=== PATIENT | female | born 1945 | race Caucasian/White ===

== ENCOUNTER → 2017-08-15 | Outpatient (CLI) | payer MEDICARE, BC ==
[~2017-08-15] MED LIST: ACCUPRIL40 MG PO; ACCUPRIL40MGTAB; ALLEGRA180 MG PO; APAP AND CODEI120 ML PO; APRESOLINE 25MG25 MG PO; ASPI325T6; ASPI325T6 PO; ASPIRIN 81M81 MG/TA2 PO; AVAPRO300 MG PO; BENADRYL25 M2; BENADRYL50 MG PO; CARDI-OMEGA1000 MG PO; CELEXA 20MG20 MG/TAB PO; CITALOPRAM HYDR20 MG PO; CITALOPRAM20 MG PO; COLACE 100100 MG/CAP PO; COZAAR 50MG50 MG/TAB PEG; COZAAR 50MG50 MG/TAB PO; DESYREL 50MG50 MG PO; Estradiol; FAMOTIDINE20 MG PO; FENTANYL; FERROUS SU325 MG/TAB PO; FLONASE NASAL S16 GM NS; FLONASEALLERGY NS; FLUTICASON0.05 MG/Ac NS; FOLIC ACID 40400 MCG PO; GABAPENTIN100 M1 PO; GEMCOR600 MG PO; GLUCOPHAGE XR500 M1 PO; GLUCOPHAGE500 MG/TAB PO; GLUCOTROL10 MG PO; LANTUS100 U/ML SQ; LASIX 40MG TABL40 MG PO; LIDODERM PATCH TP; LODINE400 MG PO; LOPRESSOR 225 MG/TAB PO; LYRICA 75MG CAP75 MG PO; MILK OF MA400 MG/52 PO; MULTIPLE VITAMI1 CAP PO; MULTIPLE VITAMI1 TA5 PO; NATURAL E400 IU PO; NORCO 325 MG-7.1 TAB PO; NORVASC 5MG5 MG/TAB PO; OSTEO-BI-FLEX 21 TAB PO; PEPCID 20MG TAB20 MG PO; PRAVACHOL 20MG20 MG PO; PRILOSEC 20MG20 MG PO; ROXICODONE 55 MG/TAB; ROXICODONE 55 MG/TAB PO; SENOKOT8.6 MG PO; SSKI1 GM/ML PO; SYNTHROID 0.10.15 MG PO; SYNTHROID0.2 MG/TAB PO; TRAMADOL50 MG PO; TRAZODO50 MG PO; TYLENOL 500MG500 MG PO; ULTRAM 50MG TAB50 MG; ULTRAM 50MG TAB50 MG PO; ULTRAM50 MG PO; VESICARE 5MG5 MG PO; VITAMIN C PURE500 MG PO; ZYRTEC 10MG10 MG PO
== END ==
LOC: MC.RAD 10:34
DX: Z12.31 Encounter for screening mammogram for malignant neoplasm of breast (principal)

== ENCOUNTER → 2018-06-20 | Outpatient (CLI) | payer MEDICARE, BC | LOC: ZCOL.LAB 16:34 | DX: J32.4 Chronic pansinusitis (principal) ==

== ENCOUNTER → 2018-07-10 | Outpatient (CLI) | payer MEDICARE, BC | LOC: ZLAB.ENT 15:18 | DX: J32.0 Chronic maxillary sinusitis (principal) ==

== ENCOUNTER → 2018-12-18 | Outpatient (CLI) | payer MEDICARE, BC | LOC: MC.RAD 11-06 10:00 | DX: Z12.31 Encounter for screening mammogram for malignant neoplasm of breast (principal) ==

== ENCOUNTER → 2020-09-23 | Outpatient (CLI) | payer MEDICARE, BC | LOC: MC.RAD 12:57 | DX: Z12.31 Encounter for screening mammogram for malignant neoplasm of breast (principal) ==

== ENCOUNTER 2020-12-23 09:31 | Outpatient (CLI) | payer MEDICARE, BC ==
--- NOTE | 2020-12-20 08:45 | NUR ---
LMOM WITH INSTRUCTIONS AND CALL BACK NUMBER
[2020-12-23] VITALS (10 sets, daily range): BP systolic 141–197; BP diastolic 63–79; PULSE 53–67
--- NOTE | 2020-12-23 14:35 | NUR ---
Pt assisted out by wheelchair to son's car. Personal belongings sent with pt. She expressed understanding of DC instructions. Denies complaints or pain at time of discharge. Has tolerated sips of water without issue.
== END 2020-12-23 14:35 | disposition home or self-care (01) ==
LOC: COL.RAD 09:31
DX: M47.816 Spondylosis without myelopathy or radiculopathy, lumbar region (principal); M48.061 Spinal stenosis, lumbar region without neurogenic claudication; Z98.890 Other specified postprocedural states
CPT/HCPCS: Q9965

== ENCOUNTER → 2021-01-05 | Outpatient (CLI) | payer MEDICARE, BC ==
[~2021-01-05] MED LIST changes: +ALDACTONE 25MG25 M1 PO; +ASPIRIN E.C. 8181 MG PO; +FERROUSAL325 MG PO; +LASIX 20MG TABL20 MG PO; +LEVEMIR FLEX100 U/ML SQ; +NORVASC 10MG10 MG PO; +PRAVACHOL80 MG PO
== END ==
LOC: MHCPAIN 14:42
DX: M47.817 Spondylosis without myelopathy or radiculopathy, lumbosacral region (principal); M53.3 Sacrococcygeal disorders, not elsewhere classified; M96.1 Postlaminectomy syndrome, not elsewhere classified; M54.5 Low back pain; G89.29 Other chronic pain
CPT/HCPCS: G0463

== ENCOUNTER → 2021-02-07 | Outpatient (CLI) | payer MEDICARE, BC | LOC: MHCPAIN 11:19 | DX: M47.817 Spondylosis without myelopathy or radiculopathy, lumbosacral region (principal); M54.16 Radiculopathy, lumbar region; M96.1 Postlaminectomy syndrome, not elsewhere classified; G89.29 Other chronic pain | CPT/HCPCS: G0463; J1100; Q9967 ==

== ENCOUNTER → 2021-02-22 | Outpatient (CLI) | payer MEDICARE, BC | LOC: MHCPAIN 12:17 | DX: M47.816 Spondylosis without myelopathy or radiculopathy, lumbar region (principal); M96.1 Postlaminectomy syndrome, not elsewhere classified; M53.3 Sacrococcygeal disorders, not elsewhere classified; G89.29 Other chronic pain | CPT/HCPCS: G0463 ==

== ENCOUNTER → 2021-06-02 | Outpatient (CLI) | payer MEDICARE, BC | LOC: MHCPAIN 13:14 | DX: M47.818 Spondylosis without myelopathy or radiculopathy, sacral and sacrococcygeal region (principal); M53.3 Sacrococcygeal disorders, not elsewhere classified; M96.1 Postlaminectomy syndrome, not elsewhere classified; M54.5 Low back pain | CPT/HCPCS: G0260; G0463; J1040; Q9967 ==

== ENCOUNTER → 2021-06-14 | Outpatient (CLI) | payer MEDICARE, BC | LOC: MHCPAIN 12:36 | DX: M47.817 Spondylosis without myelopathy or radiculopathy, lumbosacral region (principal); M54.5 Low back pain; M53.3 Sacrococcygeal disorders, not elsewhere classified; M79.18 Myalgia, other site; M96.1 Postlaminectomy syndrome, not elsewhere classified | CPT/HCPCS: G0463 ==

== ENCOUNTER 2021-07-26 09:01 | Outpatient (CLI) | payer MEDICARE, BC ==
[2007-12-07 02:50] VITALS: BP 136/59
[~2021-07-26] VITALS: Ht 172.7 cm; Wt 107.3 kg
[2021-07-26] VITALS (8 sets, daily range): BP systolic 168–194; BP diastolic 59–83; PULSE 52–59; TEMP 98.4
--- NOTE | 2021-07-26 12:30 | NUR ---
Dr. Rome gave verbal order to DC pt home following myelogram. Pt expressed understanding of DC instructions. She is able to ambulate to restroom with steady gait using cane. She was assisted out to son's truck by wheelchair with belongings.
== END 2021-07-26 12:30 | disposition home or self-care (01) ==
LOC: COL.RAD 09:01
DX: M47.812 Spondylosis without myelopathy or radiculopathy, cervical region (principal); M48.02 Spinal stenosis, cervical region
CPT/HCPCS: Q9967

== ENCOUNTER → 2021-09-27 | Outpatient (CLI) | payer MEDICARE, BC | LOC: MHCPAIN 12:50 | DX: M47.812 Spondylosis without myelopathy or radiculopathy, cervical region (principal); M54.12 Radiculopathy, cervical region; G89.29 Other chronic pain | CPT/HCPCS: G0463 ==

== ENCOUNTER → 2021-10-20 | Outpatient (CLI) | payer MEDICARE, BC | LOC: MHCPAIN 09:13 | DX: M47.812 Spondylosis without myelopathy or radiculopathy, cervical region (principal); M54.12 Radiculopathy, cervical region | CPT/HCPCS: J1100; Q9967 ==

== ENCOUNTER → 2021-11-02 | Outpatient (CLI) | payer MEDICARE, BC | LOC: MHCPAIN 09:32 | DX: M47.812 Spondylosis without myelopathy or radiculopathy, cervical region (principal); M54.12 Radiculopathy, cervical region; G89.29 Other chronic pain | CPT/HCPCS: G0463 ==

== ENCOUNTER → 2021-12-22 | Outpatient (CLI) | payer MEDICARE, BC | LOC: MHCPAIN 12:08 | DX: M47.812 Spondylosis without myelopathy or radiculopathy, cervical region (principal); M54.2 Cervicalgia; M54.12 Radiculopathy, cervical region | CPT/HCPCS: G0463; J1100; Q9967 ==

== ENCOUNTER → 2022-01-17 | Outpatient (CLI) | payer MEDICARE, BC | LOC: MHCPAIN 12:27 | DX: M47.812 Spondylosis without myelopathy or radiculopathy, cervical region (principal); M54.2 Cervicalgia; M54.50 Low back pain, unspecified | CPT/HCPCS: G0463 ==

== ENCOUNTER → 2022-02-20 | Outpatient (CLI) | payer MEDICARE, BC | LOC: MC.RAD 13:51 | DX: Z12.31 Encounter for screening mammogram for malignant neoplasm of breast (principal) ==

== ENCOUNTER → 2022-04-04 | Outpatient (CLI) | payer MEDICARE, BC | LOC: MHCPAIN 12:32 | DX: M47.817 Spondylosis without myelopathy or radiculopathy, lumbosacral region (principal); M53.3 Sacrococcygeal disorders, not elsewhere classified; M54.50 Low back pain, unspecified; M96.1 Postlaminectomy syndrome, not elsewhere classified | CPT/HCPCS: G0463 ==

== ENCOUNTER → 2022-04-20 | Outpatient (CLI) | payer MEDICARE, BC | LOC: MHCPAIN 13:30 | DX: M47.817 Spondylosis without myelopathy or radiculopathy, lumbosacral region (principal); M96.1 Postlaminectomy syndrome, not elsewhere classified; M53.3 Sacrococcygeal disorders, not elsewhere classified | CPT/HCPCS: G0260; J1040; Q9967 ==

== ENCOUNTER → 2022-05-10 | Outpatient (CLI) | payer MEDICARE, BC | LOC: MHCPAIN 12:10 | DX: M47.817 Spondylosis without myelopathy or radiculopathy, lumbosacral region (principal); M53.3 Sacrococcygeal disorders, not elsewhere classified; M54.50 Low back pain, unspecified; M96.1 Postlaminectomy syndrome, not elsewhere classified | CPT/HCPCS: G0463 ==

== ENCOUNTER 2023-02-04 09:37 | Inpatient (IN) | payer MEDICARE, BC ==
[~2023-02-04] VITALS: Ht 172.7 cm; Wt 104.0 kg
[2023-02-04 10:34] LABS: HEMATOCRIT 40.9 % (37.0-47.0); HEMOGLOBIN 14.8 g/dl (12.5-16.0); MEAN CELL VOLUME 91 fl (80.0-100.0); MEAN CORPUSCULAR HEMOGLOBIN 33 pg (27-31); MEAN CORPUSCULAR HGB CONC 36 g/dl (33.0-37.0); MEAN PLATELET VOLUME 9.9 fl (7.4-10.4); PLATELET COUNT 256 K/mm3 (130-400); RED BLOOD COUNT 4.51 M/mm3 (4.10-5.30); REDCELL DISTRIBUTION WIDTH-CV 13.6 % (11.5-14.5)
[2023-02-04 10:45] LABS: ALBUMIN 3.4 gm/dL (3.4-4.8); BILIRUBIN,TOTAL 0.7 mg/dL (0.2-1.2); CALCIUM 9.9 mg/dL (8.4-10.2); CREATININE, serum 2.06 mg/dL (0.57-1.11); POTASSIUM 4.9 mmol/L (3.5-4.5); TOTAL PROTEIN 7.2 gm/dL (6.2-8.1)
[2023-02-04 11:03] LABS: BAND 15 % (0-10); LYMPHOCYTE 5 % (20.0-51.0); METAMYELOCYTE 1 % (0-0); NEUTROPHILS 74 % (42.0-75.2); PLATELET ESTIMATE NORMAL (NORMAL)
[2023-02-04 11:31] LABS: MUCOUS Present (NOT PRESENT); SQUAMOUS EPITHELIAL None Seen /hpf (0-10); URINE BACTERIA Occasional /hpf (NONE SEEN)
[2023-02-04 11:32] LABS: URINE APPEARANCE Cloudy (CLEAR/HAZY); URINE BLOOD 2+ (NEGATIVE); URINE COLOR Yellow (YELLOW); URINE GLUCOSE Negative (NEGATIVE); URINE KETONE Negative (NEGATIVE); URINE NITRATE Negative (NEGATIVE); URINE PROTEIN(semi-quant) 3+ (NEGATIVE); URINE UROBILINOGEN 0.2 E.U/dL (0.2-1.0)
--- NOTE | 2023-02-04 14:04 | NUR ---
Patient arrived to the unit, alert and oriented x4, VSS, hypertension. Assessment intake done.
[2023-02-04 14:20] VITALS: BP 138/70; PULSE 74; TEMP 97.8
[2023-02-04] MEDS ORDERED: ZYLOPRIM 100MG100 MG PO (14:31)
[2023-02-04] MEDS ORDERED: HYGROTON 2525 MG/TAB PO (14:32)
[2023-02-04] MEDS ORDERED: FLEXERIL5 MG PO (14:34)
[2023-02-04] MEDS ORDERED: THEREMS-M TABL1 EACH PO (14:41)
[2023-02-04] MEDS ORDERED: BENICAR40 MG PO (14:42)
[2023-02-04] MEDS ORDERED: PREDNISONE10 MG PO (14:47)
[2023-02-04] MEDS ORDERED: SYNTHROID0.1 MG/TAB PO (14:51)
[2023-02-04 16:10] VITALS: BP 144/69; PULSE 99; TEMP 97.7
--- NOTE | 2023-02-04 18:13 | NUR ---
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
[2023-02-04 20:55] VITALS: BP 149/57; PULSE 80; TEMP 100.1
[2023-02-04 23:58] VITALS: BP 128/59; PULSE 63; TEMP 98.5
[2023-02-05] VITALS (14 sets, daily range): BP systolic 99–171; BP diastolic 48–101; PULSE 59–81; TEMP 96.9–98.6
--- NOTE | 2023-02-05 01:13 | NUR ---
ELIGIO FROM LAB CALLED AT 0109 WITH POSITIVE BLOOD CULTURE. GRAM NEGATIVE RODS--ECOLI. [facility] FALL NOTIFIED AT 0112. MISAEL BUTLER WHO IS ASSIGNED TO THIS PATIENT NOTIFED AT THIS TIME WELL.
[2023-02-05 06:38] LABS: BASO # 0.1 K/mm3 (0.0-0.2); BASO % 0.3 % (0.0-2.0); EOS % 0.1 % (0.0-4.0); GRAN # 16.6 K/mm3 (1.4-6.5); GRAN % 84.4 % (42.2-75.2); LYMPH # 1.6 K/mm3 (1.2-3.4); LYMPH % 7.9 % (20.0-51.0); MEAN CELL VOLUME 94 fl (80.0-100.0); MEAN CORPUSCULAR HGB CONC 34 g/dl (33.0-37.0); MEAN PLATELET VOLUME 9.8 fl (7.4-10.4); MONO % 5.1 % (1.7-9.3); PLATELET COUNT 165 K/mm3 (130-400); REDCELL DISTRIBUTION WIDTH-CV 13.9 % (11.5-14.5)
[2023-02-05 06:44] LABS: HEMATOCRIT 36.6 % (37.0-47.0); HEMOGLOBIN 12.4 g/dl (12.5-16.0); MEAN CORPUSCULAR HEMOGLOBIN 32 pg (27-31)
[2023-02-05 06:48] LABS: CALCIUM 8.6 mg/dL (8.4-10.2); CREATININE, serum 1.87 mg/dL (0.57-1.11)
[2023-02-05 07:30] LABS: BAND 14 % (0-10); LYMPHOCYTE 6 % (20.0-51.0); METAMYELOCYTE 2 % (0-0); NEUTROPHILS 76 % (42.0-75.2)
[2023-02-05 07:31] LABS: BURR CELLS 1+; PLATELET ESTIMATE NORMAL (NORMAL)
--- NOTE | 2023-02-05 09:39 | NUR ---
SHIFT ASSESSMENT COMPLETED AND MORNING MEDICATIONS ADMINISTERED PER ORDER. PATIENT IS ALERT AND ORIENTED X4. DENIES PAIN. LUNGS CTA, DIMINISHED TO RIGHT LOWER LOBE. ON CARDIZEM DRIP AT 5ML/HR, TOLERATING WELL. PER LEANNE ROMERO, PATIENT TO GET ADDITIONAL DOSE OF METOPROLOL THIS MORNING AND THEN RN TO D/C CARDIZEM GTT ONE HOUR POST METOPROLOL ADMINISTRATION. PATIENT DENIES NEEDS AT THIS TIME. CALL LIGHT WITHIN REACH.
--- NOTE | 2023-02-05 09:53 | NUR ---
SHIFT ASSESSMENT COMPLETED AND MORNING MEDICATIONS ADMINISTERED PER ORDER. PATIENT IS ALERT AND ORIENTED X4. C/O GENERALIZED PAIN /, TREATED WITH PRN APAP. SCHEDULED FOR LP TODAY AROUND 1100. DENIES NEEDS. CALL LIGHT WITHIN REACH.
[2023-02-05 11:00] LABS: COLLECTION METHOD CATHETER
--- NOTE | 2023-02-05 11:33 | NUR ---
PATIENT POSITIVE FOR E.COLI IN URINE AND BLOOD, PATIENT PLACED ON CONTACT PRECAUTIONS PER INFECTION CONTROL- DR. MORRIS UPDATED.
[2023-02-05 13:04] LABS: GLUCOSE,CSF 86 mg/dL (40-70)
[2023-02-05 13:10] LABS: CSF APPEARANCE CLEAR; CSF COLOR COLORLESS; CSF RBC 16 /mm3 (0-0)
[2023-02-05 13:18] LABS: TOTAL PROTEIN,CSF 28 mg/dL (15-45)
[2023-02-05 13:41] LABS: CSF MONONUCLEAR 75 % (70-100); CSF POLYMORPHONUCLEAR 25 % (0-6)
--- NOTE | 2023-02-05 13:55 | NUR ---
PATIENT RETURNED FROM LP AT APPROX 1245. POST OPS INITIATED. DENIES HEADACHE OR OTHER PAIN. INSTRUCTED TO REMAIN FLAT FOR 2 HOURS, PATIENT VERBALIZED UNDERSTANDING. DENIES FURTHER NEEDS, CALL LIGHT WITHIN REACH.
--- NOTE | 2023-02-05 15:00 | NUR ---
Patient scheduled telehealth visit with Dr. Jalloh, Infectious Disease. Pt consents to visit. Equipment set up, audio and video connections established. Visit conducted by . No technical concerns or issues.
--- NOTE | 2023-02-05 15:24 | NUR ---
ORESTES met with the patient to discuss discharge plan. The patient lives alone in [place]. She states that her grandson has been staying with her off and on until his new lease starts in February. She reports independence with ADLs and has a cane and walker. The patient's PCP is Dr. Samantha Ruiz and she receives her medications from [facility]. The patient does not have a DPOA-HC in EMR, but she states that she does has one completed and that she believes she designated her son, Jonh (ph#[phone]). Jonh lives 1/2 mile away from her. She provides that she is , but her has Alzheimer's and is in the alf, [facility] in [place]. She states that she has two children: Jonh and Shilpa. The patient plans to return home upon discharge. No additional needs at this time. *Discharge plan: home*
--- NOTE | 2023-02-05 15:51 | NUR ---
PATIENT HAS NOT BEEN ABLE TO VOID ALL DAY, BLADDER SCAN PERFORMED WHICH SHOWED 1126ML URINE IN THE BLADDER. DR. MORRIS UPDATED, NEW ORDER FOR [facility] RECEIVED.
--- NOTE | 2023-02-05 20:30 | NUR ---
Initial shift assessment done- Alert/oriented, VSS, IV fluids of NS at 75cc/hr, Lam with clear yellow urine at this time, tele on-SR, No requests at this time. Repositioned in bed-
[2023-02-06 04:08] VITALS: BP 154/88; PULSE 69; TEMP 97.9
--- NOTE | 2023-02-06 05:37 | NUR ---
Has not slept much tonight- numerous requests throughout the night- could not get comfortable, states her arthritis was acting up== did give Tylenol around 0100 but was not effective---called lucas DALEY and got pts home dose of Tramadol ordered,, give 100mg Tramadol around 0435. Repositioned numerous times- rearranged pillows etc
[2023-02-06 07:23] VITALS: BP 157/52; PULSE 66; TEMP 97.5
--- NOTE | 2023-02-06 09:58 | NUR ---
Initial visit; Patient thanked Aviation Electrical Technician for stopping in and offering God's blessings. Aviation Electrical Technician will follow up.
[2023-02-06 10:27] LABS: BASO # 0.1 K/mm3 (0.0-0.2); BASO % 0.3 % (0.0-2.0); EOS # 0.1 K/mm3 (0.0-0.7); EOS % 0.7 % (0.0-4.0); GRAN # 15.6 K/mm3 (1.4-6.5); HEMOGLOBIN 12.9 g/dl (12.5-16.0); LYMPH # 1.4 K/mm3 (1.2-3.4); LYMPH % 7.9 % (20.0-51.0); MEAN CELL VOLUME 91 fl (80.0-100.0); MEAN CORPUSCULAR HEMOGLOBIN 32 pg (27-31); MEAN CORPUSCULAR HGB CONC 35 g/dl (33.0-37.0); MEAN PLATELET VOLUME 9.7 fl (7.4-10.4); MONO # 0.8 K/mm3 (0.1-0.6); MONO % 4.2 % (1.7-9.3); PLATELET COUNT 201 K/mm3 (130-400); RED BLOOD COUNT 4.03 M/mm3 (4.10-5.30); REDCELL DISTRIBUTION WIDTH-CV 13.7 % (11.5-14.5)
[2023-02-06 10:28] LABS: HEMATOCRIT 36.5 % (37.0-47.0)
[2023-02-06 10:45] LABS: CALCIUM 9.1 mg/dL (8.4-10.2); CREATININE, serum 1.48 mg/dL (0.57-1.11); POTASSIUM 4.1 mmol/L (3.5-4.5)
[2023-02-06 11:19] VITALS: BP 154/56; PULSE 74; TEMP 98.1
--- NOTE | 2023-02-06 11:36 | NUR ---
Patient is sitting up on the chair, alert and oriented x 4, states she was able to sleep after the tramadol was provided at night. Assessment completed, meds provided. No other needs at this time. Call light within reach.
[2023-02-06 15:17] LABS: HSV 2 DNA PCR QUAL Not Detected (())
--- NOTE | 2023-02-06 15:20 | NUR ---
Telehealth visit conducted with Dr. Yung Jalloh, Infectious Disease. Patient consented to visit. Patient failiar with Dr. Jalloh from previous care. Telecommunication initiated without any difficulties during exam. All questions were answered by Dr. Jalloh
[2023-02-06 16:00] VITALS: BP 168/62; PULSE 65; TEMP 98.2
--- NOTE | 2023-02-06 17:54 | NUR ---
Patient states feeling ok right now, just ordered her dinner. Helped to transfer to the chair. Denies any chest pain. Report will be given to night RN.
[2023-02-06 19:08] VITALS: BP 188/59; PULSE 71; TEMP 98.3
[2023-02-06 23:42] VITALS: BP 192/99; BP 196/59; PULSE 61; TEMP 97.7
--- NOTE | 2023-02-07 02:03 | NUR ---
AT 1849 THIS RN RECEIVED CRITICAL TROPONIN LEVEL FOR PATIENT. Chaz JAMESON NOTIFED SEE NEW ORDERS. PTS BLOOD PRESSURE HIGH AT 2000 VITAL SIGNS MEDICATIONS ORDERED FOR THAT AT 0000 VITAL SIGNS PTS BLOOD PRESSURE 196/59 RN NOTIFIED Chaz JAMESON SEE NEW ORDERS. RN ALSO NOTIFIED OF PTS STILL ELEVATED TROPS BUT TRENDING DOWN
[2023-02-07 03:02] VITALS: BP 150/47; PULSE 55; TEMP 98.1
[2023-02-07 06:52] LABS: BASO % 0.2 % (0.0-2.0); EOS # 0.2 K/mm3 (0.0-0.7); EOS % 1.3 % (0.0-4.0); GRAN # 10.2 K/mm3 (1.4-6.5); GRAN % 79.7 % (42.2-75.2); HEMOGLOBIN 11.9 g/dl (12.5-16.0); LYMPH # 1.7 K/mm3 (1.2-3.4); LYMPH % 13.2 % (20.0-51.0); MEAN CELL VOLUME 93 fl (80.0-100.0); MEAN CORPUSCULAR HEMOGLOBIN 32 pg (27-31); MEAN CORPUSCULAR HGB CONC 34 g/dl (33.0-37.0); MEAN PLATELET VOLUME 10.2 fl (7.4-10.4); MONO # 0.6 K/mm3 (0.1-0.6); PLATELET COUNT 172 K/mm3 (130-400); RED BLOOD COUNT 3.78 M/mm3 (4.10-5.30); REDCELL DISTRIBUTION WIDTH-CV 13.5 % (11.5-14.5)
[2023-02-07 06:59] LABS: CREATININE, serum 1.4 mg/dL (0.57-1.11); HEMATOCRIT 35.1 % (37.0-47.0); POTASSIUM 4.7 mmol/L (3.5-4.5)
[2023-02-07 07:15] VITALS: BP 157/58; PULSE 67; TEMP 97.8
[2023-02-07 11:16] VITALS: BP 156/50; PULSE 57; TEMP 98.1
[2023-02-07 16:00] VITALS: BP 156/76; PULSE 62; TEMP 98.1
--- NOTE | 2023-02-07 17:45 | NUR ---
PT IS ALERT AND ORIENTED. SITTING IN CHAIR. NO COMPLAINTS AT THIS TIME. CALL [facility] IN REACH.
[2023-02-07 19:29] VITALS: BP 181/61; PULSE 59; TEMP 97.3
[2023-02-07 23:36] VITALS: BP 162/49; PULSE 54; TEMP 98.4
[2023-02-08] VITALS (8 sets, daily range): BP systolic 147–192; BP diastolic 52–79; PULSE 51–65; TEMP 97.4–98.1
--- NOTE | 2023-02-08 04:00 | NUR ---
PT HAD AN UNEVENTFUL NIGHT. PT STILL COMPLAINING THAT SHE IS STILL NOT TAKING HER NORMAL HOME MEDICATIONS, RN EDUCATED THE PATIENT THAT THE DOCTORS COULD BE HOLDING THE MEDICATIONS DUE TO SOME BLOOD PRESSURE ISSUES SHES BEEN HAVING ALONG WITH HER HEART RATE DROPPINGINTO THE 40S. PT SEEMED TO UNDERSTANDING THIS EDUCATION. PT STILL COMPLAINING OF ITCHING. NO RASH SEEN ON PATIENTS BODY. AT THE TIME OF THIS NOTE 0400 VITALS NOT TAKEN PATIENT WAS SLEEPING AND THE PATIENT REQUESTED TO SLEEP SHE HAD NOT BEEN SLEEPING THE LAST TWO NIGHTS WHEN THIS NURSE TOOK CARE OF HER. PT GIVEN TYLENOL X1 AND ULTRAM X1 COMPLAINING OF BACK PAIN BOTH TIMES. PT STATED SHE IS READY TO GO HOME. PRN IV HYDRALAZINE GIVEN X1. AT THIS TIME PT APPEARS TO BE SLEEPING COMFORTABLY.
[2023-02-08 06:26] LABS: BASO # 0.1 K/mm3 (0.0-0.2); BASO % 0.5 % (0.0-2.0); EOS # 0.2 K/mm3 (0.0-0.7); EOS % 2.2 % (0.0-4.0); GRAN # 7.1 K/mm3 (1.4-6.5); GRAN % 70.4 % (42.2-75.2); HEMATOCRIT 35.5 % (37.0-47.0); HEMOGLOBIN 12.6 g/dl (12.5-16.0); LYMPH # 1.9 K/mm3 (1.2-3.4); LYMPH % 19.1 % (20.0-51.0); MEAN CELL VOLUME 90 fl (80.0-100.0); MEAN CORPUSCULAR HEMOGLOBIN 32 pg (27-31); MEAN CORPUSCULAR HGB CONC 36 g/dl (33.0-37.0); MEAN PLATELET VOLUME 10.1 fl (7.4-10.4); MONO # 0.7 K/mm3 (0.1-0.6); MONO % 7.1 % (1.7-9.3); PLATELET COUNT 217 K/mm3 (130-400); RED BLOOD COUNT 3.94 M/mm3 (4.10-5.30); REDCELL DISTRIBUTION WIDTH-CV 13.6 % (11.5-14.5)
[2023-02-08 06:38] LABS: CALCIUM 9.4 mg/dL (8.4-10.2); CREATININE, serum 1.29 mg/dL (0.57-1.11); POTASSIUM 4.5 mmol/L (3.5-4.5)
--- NOTE | 2023-02-08 07:49 | NUR ---
Patient's PFT will be on Sunday02/09/23 at 0800. RT will come get patient at 0730. Patient is not to have any caffine 8 hours prior. Thank you
--- NOTE | 2023-02-08 08:05 | NUR ---
0645 recieved shift re[prt from primary nurse Mehul. Completed daily shift assessment patient is A&O x 4. Patient states no needs at this time. Call light within reach.
[2023-02-08] MEDS ORDERED: TOPROL XL 25MG25 MG PO (08:38)
--- NOTE | 2023-02-08 13:10 | NUR ---
Telehealth visit conducted with Dr. Yung Jalloh, Infectious Disease. Patient consented to visit. Emergency Medicine Medical Director initiated without any difficulties during exam. All questions were answered by Dr. Jalloh.
--- NOTE | 2023-02-08 23:43 | NUR ---
PATIENT ASSESSED AND GIVEN NIGHTLY MEDICATIONS. SHE IS AOX4 AND PLEASANT TO SPEAK WITH. CALVIN IN PLACE FOR RETENTION. BG WAS 161. PFT PLANNED FOR 02/09, NO CAFFEINE AFTER MIDNIGHT. REFUSING YELLOW GOWN PER PCT, WILL EDUCATE ABOUT FALL RISK PRECAUTIONS. BED ALARM ACTIVE. NO COMPLAINTS OF CHEST PAIN, SB/SR ON TELE. CALL LIGHT IN REACH. BED IN LOWEST POSITION. HOME CPAP ON PATIENT.
--- NOTE | 2023-02-09 01:38 | NUR ---
PRN IV HYDRALAZINE JUST GIVEN FOR HYPERTENSION. HER LEFT HAND IV WAS LEAKING AND NO LONGER WORKING, SO A 22G WAS PLACED IN HER RIGHT AC. WILL OBTAIN A BP ON HER AFTER THE MEDICATION BEGINS WORKING.
[2023-02-09 02:07] VITALS: BP 172/53
[2023-02-09 03:33] VITALS: BP 149/51; PULSE 62; TEMP 98.9
--- NOTE | 2023-02-09 04:09 | NUR ---
PATIENT HAS BEEN VERY ANXIOUS TONIGHT ABOUT HER BLOOD PRESSURE BEING HIGH, FEELING CLAUSTROPHOBIC IN HER ROOM, THAT HER STOMACH IS UPSET, AND SHE'S ANXIOUS TO GET OUT OF HERE. SHE WAS REASSURED AND IS RESTING COMFORTABLY CURRENTLY.
[2023-02-09 06:04] LABS: BASO # 0.1 K/mm3 (0.0-0.2); BASO % 0.4 % (0.0-2.0); EOS # 0.3 K/mm3 (0.0-0.7); EOS % 2.1 % (0.0-4.0); GRAN # 8.6 K/mm3 (1.4-6.5); HEMOGLOBIN 12.9 g/dl (12.5-16.0); LYMPH # 2.2 K/mm3 (1.2-3.4); LYMPH % 18.2 % (20.0-51.0); MEAN CELL VOLUME 93 fl (80.0-100.0); MEAN CORPUSCULAR HEMOGLOBIN 31 pg (27-31); MEAN CORPUSCULAR HGB CONC 34 g/dl (33.0-37.0); MEAN PLATELET VOLUME 9.6 fl (7.4-10.4); MONO # 0.9 K/mm3 (0.1-0.6); MONO % 7.3 % (1.7-9.3); PLATELET COUNT 280 K/mm3 (130-400); RED BLOOD COUNT 4.11 M/mm3 (4.10-5.30); REDCELL DISTRIBUTION WIDTH-CV 13.6 % (11.5-14.5)
[2023-02-09 06:19] LABS: CALCIUM 9.2 mg/dL (8.4-10.2); CREATININE, serum 1.49 mg/dL (0.57-1.11); POTASSIUM 4.4 mmol/L (3.5-4.5)
--- NOTE | 2023-02-09 06:45 | NUR ---
Received shift report from primary nurse, MISAEL Carver. Notified primary nurse of blood pressure (review flowsheet).
[2023-02-09 07:15] VITALS: BP 184/58; PULSE 62; TEMP 98.4
[2023-02-09 09:00] VITALS: BP 163/52; PULSE 65
[2023-02-09 11:19] VITALS: BP 147/54; PULSE 68; TEMP 98.1
[2023-02-09] MEDS ORDERED: CEFTIN500 MG PO (11:28)
[2023-02-09] MEDS ORDERED: ELIQUIS 5MG PO (11:29)
[2023-02-09] MEDS ORDERED: CORDARONE200 MG/TAB PO (11:32)
[2023-02-09] MEDS ORDERED: LIPITOR20 MG PO (11:32)
[2023-02-09] MEDS ORDERED: APRESOLINE 25MG25 MG PO (11:33)
--- NOTE | 2023-02-09 12:55 | NUR ---
The patient may be able to discharge today, 02/09. SW met with the patient to review discharge plan. The patient had no concerns for SW and plans to return home. ORESTES presented and read the IM form outloud to the patient. The patient verbalized understanding and agreement to discharge. She signed the form and ORESTES provided her with a copy. No additional needs at this time.
--- NOTE | 2023-02-09 17:17 | NUR ---
PT DISCHARGED HOME WITH SON. IV REMOVED, CATHETER INTACT, BANDAGE PLACED
== END 2023-02-09 17:10 | disposition home or self-care (01) | DRG 853 ==
LOC: COL.ER 09:37 → MEDICAL 11:32
PROVIDERS: Family Medicine; Physician Assistant; ADMIT Student in an Organized Health Care Education/Training Program
PROC: 009U3ZX Drainage of Spinal Canal, Percutaneous Approach, Diagnostic (ICD-10-PCS; 2023-02-05)
PROC: B01B1ZZ Fluoroscopy of Spinal Cord using Low Osmolar Contrast (ICD-10-PCS; 2023-02-05)
PROC: 5A09457 Assistance with Respiratory Ventilation, 24-96 Consecutive Hours, Continuous Positive Airway Pressure (ICD-10-PCS; 2023-02-07)
PROC: 0JH632Z Insertion of Monitoring Device into Chest Subcutaneous Tissue and Fascia, Percutaneous Approach (ICD-10-PCS; principal; 2023-02-08)
DX: A41.50 Gram-negative sepsis, unspecified (principal); G93.41 Metabolic encephalopathy; I21.A1 Myocardial infarction type 2; N39.0 Urinary tract infection, site not specified; N17.9 Acute kidney failure, unspecified; E87.20 Acidosis, unspecified; I47.20 Ventricular tachycardia, unspecified; E87.5 Hyperkalemia; L29.8 Other pruritus; E78.5 Hyperlipidemia, unspecified; E03.9 Hypothyroidism, unspecified; M10.9 Gout, unspecified; F32.A Depression, unspecified; K21.9 Gastro-esophageal reflux disease without esophagitis; G89.29 Other chronic pain; M54.50 Low back pain, unspecified; I45.10 Unspecified right bundle-branch block; I48.0 Paroxysmal atrial fibrillation; I08.0 Rheumatic disorders of both mitral and aortic valves; R65.20 Severe sepsis without septic shock; B96.20 Unspecified Escherichia coli [E. coli] as the cause of diseases classified elsewhere; I12.9 Hypertensive chronic kidney disease with stage 1 through stage 4 chronic kidney disease, or unspecified chronic kidney disease; E11.22 Type 2 diabetes mellitus with diabetic chronic kidney disease; N18.9 Chronic kidney disease, unspecified; B37.31 Acute candidiasis of vulva and vagina; M19.90 Unspecified osteoarthritis, unspecified site; Z79.890 Hormone replacement therapy; Z79.4 Long term (current) use of insulin; Z79.82 Long term (current) use of aspirin; Z88.1 Allergy status to other antibiotic agents; Z88.0 Allergy status to penicillin; Z91.013 Allergy to seafood; Z88.8 Allergy status to other drugs, medicaments and biological substances; Z91.018 Allergy to other foods; Z90.49 Acquired absence of other specified parts of digestive tract; Z90.710 Acquired absence of both cervix and uterus; Z90.89 Acquired absence of other organs; Z23 Encounter for immunization
CPT/HCPCS: OP; A4314; G0378; J0360; J0696; J1815; J3370; J7030; J7040

== ENCOUNTER → 2023-08-02 | Outpatient (CLI) | payer MEDICARE, BC ==
[~2023-08-02] MED LIST changes: +BENICAR40 MG PO; +CEFTIN500 MG PO; +CENTRUM1 TA1 PO; +CORDARONE200 MG/TAB PO; +ELIQUIS 5MG PO; +EUTHYROX25 MCG PO; +FLEXERIL5 MG PO; +FOLIC ACID 11 MG/TA1 PO; +HYDRALAZINE HC100 MG PO; +HYGROTON 2525 MG/TAB PO; -LEVEMIR FLEX100 U/ML SQ; +LEVEMIR100 U/ML SQ; +LIPITOR20 MG PO; +PREDNISONE10 MG PO; +SINGULAIR 110 MG/TAB PO; +SYNTHROID0.1 MG/TAB PO; +THEREMS-M TABL1 EACH PO; +TOPROL XL 25MG25 MG PO; +VITAMIN C500 MG PO; +VITAMIN D 400400 IU PO; +ZYLOPRIM 100MG100 MG PO
== END ==
LOC: MHCPAIN 07-26 15:35
DX: M47.898 Other spondylosis, sacral and sacrococcygeal region (principal); M54.50 Low back pain, unspecified; M53.3 Sacrococcygeal disorders, not elsewhere classified
CPT/HCPCS: G0260; J0665; J1040; Q9967

== ENCOUNTER → 2023-08-28 | Outpatient (CLI) | payer MEDICARE, BC | LOC: MHCPAIN 13:11 | DX: M48.061 Spinal stenosis, lumbar region without neurogenic claudication (principal); M96.1 Postlaminectomy syndrome, not elsewhere classified; M51.36 Other intervertebral disc degeneration, lumbar region; E11.9 Type 2 diabetes mellitus without complications; Z79.4 Long term (current) use of insulin | CPT/HCPCS: G0463 ==

== ENCOUNTER 2023-12-23 11:57 | Inpatient (IN) | payer MEDICARE, BC ==
[~2023-12-23] VITALS: Ht 172.7 cm; Wt 114.4 kg
[2023-12-23] VITALS (430 sets, daily range): BP systolic 151–197; BP diastolic 104–110; PULSE 52–53; TEMP 97–97.4; O2SAT 92–100
[~2023-12-23 11:57] MED LIST changes: +EUTHYROX150 MCG PO; -EUTHYROX25 MCG PO
[2023-12-23] MEDS ORDERED: NS 1,000 ML IV ONE (12:30)
[2023-12-23 12:57] LABS: BASO % 0.3 % (0.0-2.0); EOS # 0.2 K/mm3 (0.0-0.7); EOS % 1.6 % (0.0-4.0); GRAN # 7.5 K/mm3 (1.4-6.5); HEMOGLOBIN 10.7 g/dl (12.5-16.0); LYMPH # 1.2 K/mm3 (1.2-3.4); LYMPH % 12.5 % (20.0-51.0); MEAN CELL VOLUME 93 fl (80.0-100.0); MEAN CORPUSCULAR HEMOGLOBIN 29 pg (27-31); MEAN CORPUSCULAR HGB CONC 31 g/dl (33.0-37.0); MEAN PLATELET VOLUME 9.7 fl (7.4-10.4); MONO # 0.5 K/mm3 (0.1-0.6); MONO % 5.3 % (1.7-9.3); PLATELET COUNT 245 K/mm3 (130-400)
[2023-12-23 13:24] LABS: HEMATOCRIT 34.4 % (37.0-47.0)
[2023-12-23 13:30] LABS: ALBUMIN 3.5 gm/dL (3.4-4.8); BILIRUBIN,TOTAL 0.3 mg/dL (0.2-1.2); CALCIUM 9.7 mg/dL (8.4-10.2); TOTAL PROTEIN 7.2 gm/dL (6.2-8.1)
[2023-12-23 13:40] LABS: CREATININE, serum 2.33 mg/dL (0.57-1.11)
[2023-12-23 13:43] LABS: TSH w REFLEX 3.896 uIU/mL (0.350-4.940)
[2023-12-23] MEDS ORDERED: Sodium Zirconium Cyclosilicate for Oral Susp 10 GM PACKET PO ONE (13:45)
[2023-12-23] MEDS ORDERED: Insulin Aspart (NovoLOG) IV ONE (13:45)
[2023-12-23] MEDS ORDERED: Dextrose 50% Water 25 GM/50 ML SYRINGE IV ONE (13:45)
[2023-12-23] MEDS ORDERED: Sodium Bicarbonate 8.4% 50 MEQ/50 ML SYRINGE IV ONE (13:45)
[2023-12-23] MEDS ORDERED: *Potassium Replacement Protocol MC SCH (14:30)
[2023-12-23] MEDS ORDERED: AMITRIPTYLINE H25 M1 PO (15:07)
--- NOTE | 2023-12-23 15:30 | NUR ---
Report received from MISAEL Triana in the ED; patient brought over on ED bed and ambulated to the ICU bed. Patient had no fluids or meds running through her peripheral INT. Patient was on room air and vital signs were with normal limits, with the exception of blood pressure, which continued to be high. Patient's heart rate was in the 50s-60s, and patient had converted back to sinus rhythm. Cardiology aware of patient arrival.
[2023-12-23] MEDS ORDERED: hydrALAZINE 20 MG/ML 1 ML VIAL IV PRN ×2 (17:45→22:15)
--- NOTE | 2023-12-23 20:00 | NUR ---
PT RESTING IN BED AND IS A&OX4 AT THIS TIME. BRUISING NOTED AROUND EYES. PT REPORTS BRUISING IS FROM EYELID SURGERY 12/19/23. SHE REPORTS HER PAIN LEVEL IS NORMALLY A 7 TO HER BACK AND IS 6/10 AT THIS TIME. VSS WITH ELEVATED BP AND PRN BP MEDICATION NOTED AND MI EDUCATED ON ADMINISTRATION. PT ASSISTED WITH SBA AND WALKER TO COMODE AT THIS TIME AND VOIDED WITHOUT ISSUE. ASSESSMENTS COMPLETED, CALL LIGHT, WITHIN REACH, BED IN LOW POSITION, AND CARE PLAN REVIEWED. PT EDUCATED THAT CPAP IS ORDERED AND SHE REPORTS SHE DOES NORMALLY WHERE A CPAP AT HOME, BUT SHE HAS INTERNAL STITCHES ON FACE FROM 12/19 SURGERY AND REPORTS SHE DOES NOT WANT THE CPAP. RT IN ROOM TO PARTICIPATE IN CONVERSATION. NO ADDITIONAL NEEDS VOICED OR ANTICPATED AT THIS TIME.
[2023-12-23] MEDS ORDERED: Atorvastatin 20 MG TAB PO SCH (21:00)
[2023-12-23] MEDS ORDERED: Melatonin 3 MG TAB PO PRN (21:30)
[2023-12-23] MEDS ORDERED: Acetaminophen 325 MG TAB PO PRN (21:30)
[2023-12-23] MEDS ORDERED: Insulin Aspart (NovoLOG) SQ SCH (21:54)
[2023-12-23] MEDS ORDERED: Glucagon 1 MG VIAL IM PRN (22:30)
[2023-12-23] MEDS ORDERED: Dextrose (Glucose) 15 GM (4 x 3.75 GM) Chewable TABLET PACK PO PRN (22:30)
[2023-12-23] MEDS ORDERED: Dextrose 50% Water 25 GM/50 ML SYRINGE IV PRN (22:30)
[2023-12-24] VITALS (1032 sets, daily range): BP systolic 142–191; BP diastolic 55–81; PULSE 58–73; TEMP 97.8–99.8; O2SAT 91–100
--- NOTE | 2023-12-24 02:21 | NUR ---
AT 0145 IV MEDICATION ATTEMPTED TO BE ADMINISTERED AND IV SITE TO RAC NOTED TO BE OUT OF ARM. CATHETER INTACT. NEW SITE INITIATED TO R HAND AND MEDICATION ADMINISTERED PER JAN. PT REQUESTS ALL SIDE RAILS TO BE UP AT THIS TIME. SHE REPORTS IT HELPS HER REPOSITION IN BED. COOL WASHCLOTH PROVIDED FOR EYES. STITCHES ARE "ITCHY" AT THIS TIME. PT DENIES ADDITIONAL NEEDS AND REPORTS SHE PLANS TO GO TO SLEEP.
[2023-12-24] MEDS ORDERED: hydrALAZINE 20 MG/ML 1 ML VIAL IV PRN (04:15)
[2023-12-24] MEDS ORDERED: amLODIPine 10 MG TAB PO SCH ×2 (04:30→09:00)
[2023-12-24 04:38] LABS: BASO % 0.3 % (0.0-2.0); EOS # 0.2 K/mm3 (0.0-0.7); EOS % 1.9 % (0.0-4.0); GRAN # 7.5 K/mm3 (1.4-6.5); GRAN % 76.6 % (42.2-75.2); HEMOGLOBIN 10.1 g/dl (12.5-16.0); LYMPH # 1.4 K/mm3 (1.2-3.4); LYMPH % 14.6 % (20.0-51.0); MEAN CELL VOLUME 89 fl (80.0-100.0); MEAN CORPUSCULAR HEMOGLOBIN 29 pg (27-31); MEAN CORPUSCULAR HGB CONC 32 g/dl (33.0-37.0); MONO # 0.6 K/mm3 (0.1-0.6); MONO % 6.3 % (1.7-9.3); PLATELET COUNT 249 K/mm3 (130-400); RED BLOOD COUNT 3.53 M/mm3 (4.10-5.30); REDCELL DISTRIBUTION WIDTH-CV 16.7 % (11.5-14.5)
[2023-12-24 04:45] LABS: HEMATOCRIT 31.3 % (37.0-47.0)
[2023-12-24 04:58] LABS: ALBUMIN 3.1 gm/dL (3.4-4.8); CALCIUM 9.6 mg/dL (8.4-10.2); CREATININE, serum 1.97 mg/dL (0.57-1.11); MAGNESIUM 1.9 mg/dL (1.6-2.6); PHOSPHOROUS 2.8 mg/dL (2.3-4.7); POTASSIUM 5.3 mmol/L (3.5-4.5)
--- NOTE | 2023-12-24 07:00 | NUR ---
Report received from MISAEL Mendoza; patient currently resting in bed with eyes closed. Patient has no meds or fluids running through her peripheral INT. Patient has been NPO since midnight for possible pacemaker placement today. Patient's blood pressure remains elevated; patient was given doses of hydralazine overnight and some home meds are to resume this a.m. Patient is on room air and vital signs other than blood pressure remain within normal limits this morning.
[2023-12-24] MEDS ORDERED: hydrALAZINE 25 MG TAB PO SCH (09:00)
[2023-12-24] MEDS ORDERED: Furosemide 20 MG TAB PO SCH (09:00)
[2023-12-24] MEDS ORDERED: Vancomycin 1.5 GM,Special Dose/Pharmacy Prepared 1.5 GM in NS 250 ML IV SCH (10:15)
[2023-12-24] MEDS ORDERED: methylPREDNISolone Sod Succ 125 MG/2 ML VIAL IV SCH (10:15)
[2023-12-24] MEDS ORDERED: 1/2 NS 1,000 ML IV SCH (10:15)
[2023-12-24] MEDS ORDERED: diphenhydrAMINE 50 MG/ML 1 ML VIAL IV SCH (10:15)
[2023-12-24] MEDS ORDERED: Sodium Zirconium Cyclosilicate for Oral Susp 10 GM PACKET PO ONE (10:15)
[2023-12-24 12:12] LABS: CALCIUM 9.6 mg/dL (8.4-10.2); CREATININE, serum 1.88 mg/dL (0.57-1.11); INR 1.2 (0.8-3.0); POTASSIUM 4.9 mmol/L (3.5-4.5)
--- NOTE | 2023-12-24 12:41 | NUR ---
Please see merge documentation for record of interventions, vitals and medications admninistered during permanent pacemaker implantation and loop recorder removal.
[2023-12-24] MEDS ORDERED: NS 1,000 ML IV.SOLN. IR SCH (12:45)
[2023-12-24] MEDS ORDERED: fentaNYL 50 MCG/ML 2 ML VIAL IV SCH (12:50)
[2023-12-24] MEDS ORDERED: Midazolam 2 MG/2 ML VIAL IV SCH (12:50)
[2023-12-24] MEDS ORDERED: Vancomycin 1 GM VIAL IR SCH (12:51)
[2023-12-24] MEDS ORDERED: Topical Skin Adhesive 1 EACH (1 ML) TOP ONE (12:53)
--- NOTE | 2023-12-24 13:30 | NUR ---
Patient went to greenhouse laborer for pacemaker placement at approx 1130 and returned at approx 1320. Patient was alert and oriented upon arrival to the unit and vital signs were within normal limits, with the exception of blood pressure, which was slightly elevated, as it has been since admission. Patient tolerated procedure well and the dressings were clean, dry, and intact.
[2023-12-24] MEDS ORDERED: Amiodarone 200 MG TAB PO SCH (13:50)
--- NOTE | 2023-12-24 16:11 | NUR ---
SW student Deanna sent a SNF referral to [facility] and [facility].
--- NOTE | 2023-12-24 16:28 | NUR ---
Patient was sleeping after her medical procedure. general house worker met with patient's son, Jonh [phone] to complete initial assessment for discharge planning. Patient lives alone in [place], [place] and her spouse and daughter both recently with cancer. Son states he has seen a decline in patient's health and feels that she will need rehab upon discharge. Son is agreeable to referrals in [place] and states that patient has previously been to [facility] for rehab. Worker states we will visit with patient tomorrow when she is awake to provide options and obtain choice. Patient's primary care provider is Dr Ruiz. Physical and Occupational therapy are ordered and we will await their evaluation and recommendations. Discharge plan: SNF
[2023-12-25] VITALS (950 sets, daily range): BP systolic 115–169; BP diastolic 60–102; PULSE 63–75; TEMP 97.6–98.6; O2SAT 89–100
[2023-12-25 06:20] LABS: BASO % 0.1 % (0.0-2.0); GRAN # 7.5 K/mm3 (1.4-6.5); GRAN % 85.4 % (42.2-75.2); HEMOGLOBIN 10.6 g/dl (12.5-16.0); LYMPH # 0.9 K/mm3 (1.2-3.4); LYMPH % 10.1 % (20.0-51.0); MEAN CELL VOLUME 87 fl (80.0-100.0); MEAN CORPUSCULAR HEMOGLOBIN 29 pg (27-31); MEAN CORPUSCULAR HGB CONC 33 g/dl (33.0-37.0); MEAN PLATELET VOLUME 9.6 fl (7.4-10.4); MONO # 0.3 K/mm3 (0.1-0.6); MONO % 3.6 % (1.7-9.3); PLATELET COUNT 238 K/mm3 (130-400); RED BLOOD COUNT 3.68 M/mm3 (4.10-5.30); REDCELL DISTRIBUTION WIDTH-CV 15.9 % (11.5-14.5)
[2023-12-25 06:28] LABS: HEMATOCRIT 31.9 % (37.0-47.0)
[2023-12-25 06:43] LABS: ALBUMIN 3.1 gm/dL (3.4-4.8); CALCIUM 9.5 mg/dL (8.4-10.2); CREATININE, serum 1.62 mg/dL (0.57-1.11); PHOSPHOROUS 3.3 mg/dL (2.3-4.7); POTASSIUM 4.3 mmol/L (3.5-4.5)
--- NOTE | 2023-12-25 07:00 | NUR ---
Report received from MISAEL Roth; patient currently resting in bed with no meds or fluids running through either one of her peripheral INTs. Patient's arm remains in a sling from her pacemaker placement that was done yesterday. Patient's vital signs are within normal limits this morning, with the exception of blood pressure which can run high; some of her home meds will be restarted this morning. Patient refuses to use the Purewick or bedpan and insists she get up to the commode. Patient has to be constantly reminded to not use her left arm; patient is non-compliant with instructions.
--- NOTE | 2023-12-25 09:41 | NUR ---
firestop/containment worker was contacted by [facility], they expressed they are able to accept patient for SNF services. SW notified ORESTES Schultz whom is working with the patient and family.
[2023-12-25] MEDS ORDERED: Omeprazole 20 MG **** subs to Pantoprazole 40 MG PO SCH (09:49)
[2023-12-25] MEDS ORDERED: Citalopram 20 MG TAB PO SCH (09:49)
[2023-12-25] MEDS ORDERED: Ascorbic Acid 500 MG TAB PO SCH (09:50)
[2023-12-25] MEDS ORDERED: Cholecalciferol (Vit D3) 1000 Units TAB PO SCH (09:50)
[2023-12-25] MEDS ORDERED: Allopurinol 100 MG TAB PO SCH (09:51)
[2023-12-25] MEDS ORDERED: Spironolactone 12.5 MG TAB PO SCH (09:51)
[2023-12-25] MEDS ORDERED: Olmesartan 40 MG **** subs to Losartan 100 MG PO SCH (09:51)
[2023-12-25] MEDS ORDERED: Losartan 50 MG TAB PO SCH (10:15)
[2023-12-25] MEDS ORDERED: Insulin Aspart (NovoLOG) SQ SCH (12:00)
--- NOTE | 2023-12-25 13:49 | NUR ---
transportation maintenance worker was notified patient will need SNF. SW provided the Medicare.gov list. Pt said she would like [facility] "[facility] [place] [place]" as she has been there before. Pt was agreeable to [facility] and [facility] as secondary options. SW faxed referrals to all three. SW was informed they all could accept pt. SW spoke with pt who reports she would like [facility]. Discharge Plan: [facility]
[2023-12-25] MEDS ORDERED: Clindamycin 150 MG CAP PO SCH (18:00)
--- NOTE | 2023-12-25 19:30 | NUR ---
Received report from Erin Mcdonnell RN. Pt is alert and resting in bed. Pt has the call light within reach at this time. Pt's vitals are stable at this time. Pt has no fluids or drips running at this time. Pt does not look in distress at this time. Will contiue pt care.
[2023-12-25] MEDS ORDERED: Amitriptyline 25 MG TAB PO SCH (21:00)
[2023-12-25] MEDS ORDERED: Folic Acid 1 MG TAB PO SCH (21:00)
[2023-12-25] MEDS ORDERED: Fluticasone Nasal 50 MCG/Spray 16 GM BOTTLE NS SCH (21:00)
[2023-12-25] MEDS ORDERED: Montelukast 10 MG TAB PO SCH (21:00)
[2023-12-25] MEDS ORDERED: Ferrous Sulfate 325 MG TAB PO SCH (21:00)
[2023-12-26] VITALS (711 sets, daily range): BP systolic 155–184; BP diastolic 59–81; PULSE 60–71; TEMP 97.5–98.1; O2SAT 90–100
[2023-12-26 04:42] LABS: BASO % 0.3 % (0.0-2.0); EOS # 0.3 K/mm3 (0.0-0.7); EOS % 2.2 % (0.0-4.0); GRAN # 8.2 K/mm3 (1.4-6.5); GRAN % 67.6 % (42.2-75.2); HEMOGLOBIN 11.1 g/dl (12.5-16.0); LYMPH # 2.7 K/mm3 (1.2-3.4); LYMPH % 22.6 % (20.0-51.0); MEAN CELL VOLUME 87 fl (80.0-100.0); MEAN CORPUSCULAR HEMOGLOBIN 29 pg (27-31); MEAN CORPUSCULAR HGB CONC 33 g/dl (33.0-37.0); MEAN PLATELET VOLUME 9.3 fl (7.4-10.4); MONO # 0.8 K/mm3 (0.1-0.6); MONO % 6.6 % (1.7-9.3); PLATELET COUNT 260 K/mm3 (130-400); RED BLOOD COUNT 3.83 M/mm3 (4.10-5.30); REDCELL DISTRIBUTION WIDTH-CV 16.2 % (11.5-14.5)
[2023-12-26 04:48] LABS: HEMATOCRIT 33.3 % (37.0-47.0)
[2023-12-26 04:59] LABS: ALBUMIN 3.1 gm/dL (3.4-4.8); CALCIUM 9.4 mg/dL (8.4-10.2); CREATININE, serum 1.62 mg/dL (0.57-1.11); PHOSPHOROUS 3.5 mg/dL (2.3-4.7); POTASSIUM 4.4 mmol/L (3.5-4.5)
--- NOTE | 2023-12-26 06:30 | NUR ---
Pt had an uneventful night. Pt's incision sites looked clean, dry and intact and no hematomas felt. Pt had some high BP's and PRN meds were given twice throughout the night. Pt is currently resting in bed with the call light within reach. Will give report to day shift nurse.
[2023-12-26] MEDS ORDERED: CLEOCIN HCL300 MG PO (10:00)
[2023-12-26] MEDS ORDERED: HYDRALAZINE HC100 MG PO (10:01)
[2023-12-26] MEDS ORDERED: TOPROL XL 50MG50 MG PO (10:01)
[2023-12-26] MEDS ORDERED: NITROSTAT0.4 MG/TAB SL (10:01)
[2023-12-26] MEDS ORDERED: NOVOLOG 100U100 U/M1 SQ (10:04)
[2023-12-26] MEDS ORDERED: GLUCAGEN1 MG IM (10:05)
--- NOTE | 2023-12-26 10:28 | NUR ---
Report given to MISAEL Garcia from [facility] at number [phone] at this time. VSS, allergies and medical status discussed. Transportations 1230 per [facility] transportation. [place] has worked out details.
--- NOTE | 2023-12-26 10:31 | NUR ---
wool batting worker was informed patient can go to [facility]. SW sent discharge orders to [facility]. [facility] can transport patient at 12:30pm. ORESTES informed pt and completed IM from Medicare. Pt signed and verbalized understanding. ORESTES placed original in chart. ORESTES called patient's son, Jonh [phone] and provided an update. He was agreeable and understood. Discharge Plan: 12:30pm transport to [facility] SNF
--- NOTE | 2023-12-26 14:09 | NUR ---
Patient appeared to sleeping, vss, with elevated blood pressures that had been addressed with multiple medications. This morning she had been able to to and from the bedside commode with a one assist. Producing adequate urine throughout the day, voiding on her own. Alert and oriented without confusion. Pacer and loop recorder site without complications at this time.
--- NOTE | 2023-12-26 14:35 | NUR ---
AT 1030 REPORT TO BRAMAGE TO [facility] AT [facility]. 1230 SECURE SOFTWARE ASSESSOR PICKED UP MS. BOOKER, BOTH IVS WERE REMOVED, LEADS/STICKERS, OXYGEN PROBE WERE REMOVED. Discharge packet was signed by patient, left floor at 1248 via wheelchair to [facility] and bulk driver. At 1210 I checked blood sugar, it was 193, and before I treated it, I called [facility] to ensure they had a lunch tray ready for her upon arrival. Confirmed with MISAEL Warner, and gave 4 units of Novolog.
== END 2023-12-26 12:48 | DRG 243 ==
LOC: COL.ER 11:57 → ICU 13:38
PROVIDERS: Family Medicine; ADMIT Internal Medicine
PROC: 0JH606Z Insertion of Pacemaker, Dual Chamber into Chest Subcutaneous Tissue and Fascia, Open Approach (ICD-10-PCS; principal; 2023-12-24)
PROC: 02H63JZ Insertion of Pacemaker Lead into Right Atrium, Percutaneous Approach (ICD-10-PCS; 2023-12-24)
PROC: 02HK3JZ Insertion of Pacemaker Lead into Right Ventricle, Percutaneous Approach (ICD-10-PCS; 2023-12-24)
PROC: 0JPT02Z Removal of Monitoring Device from Trunk Subcutaneous Tissue and Fascia, Open Approach (ICD-10-PCS; 2023-12-24)
DX: I49.5 Sick sinus syndrome (principal); F11.20 Opioid dependence, uncomplicated; N17.9 Acute kidney failure, unspecified; I48.0 Paroxysmal atrial fibrillation; Z66 Do not resuscitate; E11.9 Type 2 diabetes mellitus without complications; Z96.651 Presence of right artificial knee joint; N18.32 Chronic kidney disease, stage 3b; G89.29 Other chronic pain; M54.9 Dorsalgia, unspecified; I12.9 Hypertensive chronic kidney disease with stage 1 through stage 4 chronic kidney disease, or unspecified chronic kidney disease; E66.9 Obesity, unspecified; E78.5 Hyperlipidemia, unspecified; D64.9 Anemia, unspecified; F32.A Depression, unspecified; E87.5 Hyperkalemia; G72.9 Myopathy, unspecified; I27.20 Pulmonary hypertension, unspecified; I08.3 Combined rheumatic disorders of mitral, aortic and tricuspid valves; G47.33 Obstructive sleep apnea (adult) (pediatric); Z79.899 Other long term (current) drug therapy; Z90.49 Acquired absence of other specified parts of digestive tract; Z88.1 Allergy status to other antibiotic agents; Z88.0 Allergy status to penicillin; Z91.013 Allergy to seafood; Z88.8 Allergy status to other drugs, medicaments and biological substances; Z91.018 Allergy to other foods; Z90.710 Acquired absence of both cervix and uterus; Z87.440 Personal history of urinary (tract) infections; Z79.01 Long term (current) use of anticoagulants; Z99.89 Dependence on other enabling machines and devices; Z85.850 Personal history of malignant neoplasm of thyroid; Z79.84 Long term (current) use of oral hypoglycemic drugs; Z79.890 Hormone replacement therapy; Z23 Encounter for immunization; Z68.36 Body mass index [BMI] 36.0-36.9, adult
CPT/HCPCS: A9270; C1769; C1785; C1894; C1898; J0360; J0612; J0665-JZ; J0737; J1200; J1815; J2250; J2930; J3010; J3370; J7030; J7050

== ENCOUNTER → 2024-07-02 | Outpatient (CLI) | payer MEDICARE, BC ==
[~2024-07-02] MED LIST changes: +AMITRIPTYLINE H25 M1 PO; +CATAPRES0.2 MG PO; +CLEOCIN HCL300 MG PO; +GLUCAGEN1 MG IM; +NITROSTAT0.4 MG/TAB SL; +NOVOLOG 100U100 U/M1 SQ; +TOPROL XL 50MG50 MG PO; +ZOFRAN ODT4 MG PO
== END ==
LOC: MHCPAIN 12:47
DX: M96.1 Postlaminectomy syndrome, not elsewhere classified (principal); M47.816 Spondylosis without myelopathy or radiculopathy, lumbar region; M48.07 Spinal stenosis, lumbosacral region; Z98.1 Arthrodesis status; M54.50 Low back pain, unspecified; M54.2 Cervicalgia; E11.9 Type 2 diabetes mellitus without complications; Z79.4 Long term (current) use of insulin
CPT/HCPCS: G0463

== ENCOUNTER 2024-07-04 23:43 | Emergency (ER) | payer MEDICARE, BC ==
[~2024-07-04] VITALS: Ht 172.7 cm; Wt 113.2 kg
[~2024-07-04 23:43] MED LIST changes: -CATAPRES0.2 MG PO; -ZOFRAN ODT4 MG PO
[2024-07-04 23:46] VITALS: TEMP 97.6
[2024-07-05 02:30] LABS: BASO # 0.1 K/mm3 (0.0-0.2); BASO % 0.5 % (0.0-2.0); EOS # 0.2 K/mm3 (0.0-0.7); EOS % 2.2 % (0.0-4.0); GRAN % 65.1 % (42.2-75.2); HEMATOCRIT 40.5 % (37.0-47.0); HEMOGLOBIN 13.5 g/dl (12.5-16.0); LYMPH # 2.7 K/mm3 (1.2-3.4); LYMPH % 25.5 % (20.0-51.0); MEAN CELL VOLUME 96 fl (80.0-100.0); MEAN CORPUSCULAR HEMOGLOBIN 32 pg (27-31); MEAN CORPUSCULAR HGB CONC 33 g/dl (33.0-37.0); MEAN PLATELET VOLUME 9.6 fl (7.4-10.4); MONO # 0.7 K/mm3 (0.1-0.6); MONO % 6.2 % (1.7-9.3); PLATELET COUNT 240 K/mm3 (130-400); RED BLOOD COUNT 4.24 M/mm3 (4.10-5.30); REDCELL DISTRIBUTION WIDTH-CV 13.8 % (11.5-14.5)
[2024-07-05 02:45] LABS: ALBUMIN 4.1 g/dL (3.4-4.8); BILIRUBIN,TOTAL 0.2 mg/dL (0.2-1.2); CREATININE, serum 1.99 mg/dL (0.57-1.11); POTASSIUM 4.9 mEq/L (3.5-4.5); TOTAL PROTEIN 7.7 g/dl (6.2-8.1)
[2024-07-05] MEDS ORDERED: Ondansetron 4 MG/2 ML VIAL IV ONE ×2 (02:45→03:15)
[2024-07-05] MEDS ORDERED: NS 500 ML IV ONE (03:15)
[2024-07-05 03:24] LABS: COLLECTION METHOD CATHETER
[2024-07-05 03:35] LABS: PH 5.5 (5.0-8.5); URINE APPEARANCE CLEAR (CLEAR/HAZY); URINE BLOOD NEGATIVE (NEGATIVE); URINE COLOR YELLOW (YELLOW); URINE GLUCOSE NEGATIVE (NEGATIVE); URINE KETONE NEGATIVE (NEGATIVE); URINE NITRATE NEGATIVE (NEGATIVE); URINE PROTEIN(semi-quant) 1+ (NEGATIVE); URINE UROBILINOGEN 0.2 E.U/dL (0.2-1.0)
[2024-07-05] MEDS ORDERED: cloNIDine 0.1 MG TAB PO ONE (05:15)
[2024-07-05] MEDS ORDERED: ZOFRAN ODT4 MG PO (07:42)
[2024-07-05] MEDS ORDERED: CATAPRES0.2 MG PO (07:42)
[2024-07-05 07:53] VITALS: BP 138/55; PULSE 61
== END 2024-07-05 07:53 | disposition home or self-care (01) ==
LOC: COL.ER 23:43
PROVIDERS: Emergency Medicine
DX: R11.0 Nausea (principal); I10 Essential (primary) hypertension
CPT/HCPCS: J0780; J2405; J7040

== ENCOUNTER → 2024-08-13 | Outpatient (CLI) | payer MEDICARE, BC ==
[~2024-08-13] MED LIST changes: +CATAPRES0.2 MG PO; +ZOFRAN ODT4 MG PO
== END ==
LOC: MHCPAIN 14:31
DX: M48.061 Spinal stenosis, lumbar region without neurogenic claudication (principal); Z98.1 Arthrodesis status; M43.12 Spondylolisthesis, cervical region; M48.02 Spinal stenosis, cervical region; E11.22 Type 2 diabetes mellitus with diabetic chronic kidney disease; N18.9 Chronic kidney disease, unspecified; Z79.4 Long term (current) use of insulin
CPT/HCPCS: G0463

== ENCOUNTER 2024-08-16 14:06 | Emergency (ER) | payer MEDICARE, BC ==
[~2024-08-16] VITALS: Ht 172.7 cm; Wt 113.2 kg
[2024-08-16 14:13] VITALS: TEMP 99.1
[2024-08-16 15:09] LABS: BASO % 0.5 % (0.0-2.0); EOS # 0.2 K/mm3 (0.0-0.7); EOS % 1.8 % (0.0-4.0); GRAN # 6.1 K/mm3 (1.4-6.5); GRAN % 70.1 % (42.2-75.2); HEMATOCRIT 40.2 % (37.0-47.0); HEMOGLOBIN 13.7 g/dl (12.5-16.0); LYMPH # 1.9 K/mm3 (1.2-3.4); LYMPH % 21.4 % (20.0-51.0); MEAN CELL VOLUME 96 fl (80.0-100.0); MEAN CORPUSCULAR HEMOGLOBIN 33 pg (27-31); MEAN CORPUSCULAR HGB CONC 34 g/dl (33.0-37.0); MEAN PLATELET VOLUME 9.4 fl (7.4-10.4); MONO # 0.5 K/mm3 (0.1-0.6); PLATELET COUNT 269 K/mm3 (130-400); RED BLOOD COUNT 4.17 M/mm3 (4.10-5.30); REDCELL DISTRIBUTION WIDTH-CV 13.8 % (11.5-14.5)
[2024-08-16 15:31] LABS: COLLECTION METHOD CATHETER
[2024-08-16 15:43] LABS: URINE APPEARANCE CLEAR (CLEAR/HAZY); URINE BLOOD NEGATIVE (NEGATIVE); URINE COLOR YELLOW (YELLOW); URINE GLUCOSE NEGATIVE (NEGATIVE); URINE KETONE NEGATIVE (NEGATIVE); URINE NITRATE NEGATIVE (NEGATIVE); URINE PROTEIN(semi-quant) 1+ (NEGATIVE); URINE UROBILINOGEN 0.2 E.U/dL (0.2-1.0)
[2024-08-16 15:47] LABS: ALBUMIN 4.1 g/dL (3.4-4.8); BILIRUBIN,TOTAL 0.4 mg/dL (0.2-1.2); CALCIUM 10.7 mg/dL (8.4-10.2); CREATININE, serum 1.89 mg/dL (0.57-1.11); POTASSIUM 4.9 mEq/L (3.5-4.5); TOTAL PROTEIN 7.7 g/dl (6.2-8.1)
[2024-08-16] MEDS ORDERED: NS 500 ML IV ONE (16:30)
[2024-08-16] MEDS ORDERED: Acetaminophen 500 MG TAB PO ONE (16:45)
[2024-08-16] MEDS ORDERED: Ondansetron 4 MG/2 ML VIAL IV ONE (16:45)
[2024-08-16] MEDS ORDERED: traMADol 50 MG TAB PO ONE (16:45)
[2024-08-16 18:33] VITALS: BP 137/57; PULSE 61
--- NOTE | 2024-08-18 10:36 | NUR ---
SW received message from weekend that patient's son and dtr-in-law had questioned about care giving options when patient was in hospital over the weekend. SW call patient's son Jonh ([phone]) to discuss needs and options. Jonh shared that patient lives alone in [place], [place], uses no DME except CPAP and is independent at home alone. Patient sees Dr. Samantha Ruiz as her PCP. Jonh shared that they have attempted to get patient to move to their house but patient insists on staying in her home until after Radha. Jonh stated that they held a family meeting after patient's ER visit and all family is willing to check on and assist patient daily to allow her to remain in her home. SW encouraged Jonh to discuss needs with Dr. Ruiz at patient's follow up appointments. Jonh voiced understanding.
== END 2024-08-16 18:48 | disposition home or self-care (01) ==
LOC: COL.ER 14:06
PROVIDERS: Physician Assistant
DX: E86.0 Dehydration (principal); R10.9 Unspecified abdominal pain
CPT/HCPCS: J2405; J7040

== ENCOUNTER → 2024-08-26 | Outpatient (CLI) | payer MEDICARE, BC ==
[2006-07-17 07:57] VITALS: PULSE 58; TEMP 97
[~2024-08-26] VITALS: Ht 172.7 cm; Wt 119.6 kg
[~2024-08-26] MED LIST changes: +ATROVENT INHALE14 GM IH; +BENICAR 20MG TA20 MG PO; +IRON TABLETS325 MG PO; +Iohexol 180 - 10 ML VIAL IV ONE; +LEXAPRO 10MG10 MG PO; +MULTI VITAMINS1 TAB PO; +PACERONE200 MG PO; +PROTONIX 40MG T40 MG PO; +VITAMIN D 400400 IU
[2024-08-26 12:31] VITALS: BP 185/73; PULSE 71; TEMP 97.5
[2024-08-26 13:30] VITALS: BP 157/68; PULSE 74
[2024-08-26 13:45] VITALS: BP 177/72; PULSE 60
[2024-08-26 14:00] VITALS: BP 179/69; PULSE 60
[2024-08-26 14:15] VITALS: BP 162/81; PULSE 60
[2024-08-26 14:30] VITALS: BP 166/83; PULSE 63
== END ==
LOC: COL.RAD 11:38
DX: M48.061 Spinal stenosis, lumbar region without neurogenic claudication (principal); M54.16 Radiculopathy, lumbar region
CPT/HCPCS: Q9965

== ENCOUNTER → 2024-09-03 | Outpatient (CLI) | payer MEDICARE, BC ==
[~2024-09-03] MED LIST changes: -Iohexol 180 - 10 ML VIAL IV ONE
== END ==
LOC: MHCPAIN 12:20
DX: M48.061 Spinal stenosis, lumbar region without neurogenic claudication (principal); M48.02 Spinal stenosis, cervical region; M50.321 Other cervical disc degeneration at C4-C5 level; M43.12 Spondylolisthesis, cervical region
CPT/HCPCS: G0463